=== PATIENT | male | born 1975 | race Caucasian/White ===

== ENCOUNTER → 2017-05-27 | Day surgery (SDC) | payer BC ==
[2017-05-13 14:43] VITALS: Ht 188 cm; Wt 85.5 kg
[~2017-05-27] VITALS: Ht 188 cm; Wt 85.5 kg
[~2017-05-27] MED LIST: ATROPINE SULFATE 0.1 MG/ML 5ML SYR IV PRN; CEFAZOLIN 2000 MG/60 ML D5W IV SCH; DEXAMETHASONE SOD INJ 4 MG/ML VIAL ONE; EpHEDrine SULFATE INJ 50 MG/ML AMP IV PRN; EpINEphrine INJ 1MG/ML AMP 1 MG/ML AMP ONE; FENTANYL CITRATE INJ 50 MCG/1 ML 2 ML VIAL IV PRN; FENTANYL CITRATE INJ 50 MCG/1 ML 2 ML VIAL ONE; HYDR-5688 PO; HYDROCODONE/ACETAMOPHEN 5/325MG TAB PO PRN; KETOROLAC TROMETHAMINE 30 MG/ML VIAL ONE; LIDOCAINE HCL 2% 2 ML VIAL (20MG/ML) ONE; MIDAZOLAM HCL 1 MG/ML 2ML VIAL ONE; ONDANSETRON INJ 2 MG/ML 2 ML VIAL IV PRN; ONDANSETRON INJ 2 MG/ML 2 ML VIAL ONE; PROPOFOL IV EMULSION 10 MG/ML 20 ML VIAL IV ONE; ROPIVACAINE 0.5% 5 MG/ML 30 ML VIAL ONE; SODIUM CHLORIDE 0.9% 1000ML 1,000 ML IV SCH
--- NOTE | 2017-05-27 06:52 | History & Physical Bridge - [place] ---
H&P Re-Evaluation Bridge Note: I have examined the patient, reviewed the History & Physical and in the interval since the performance of the History & Physical I have noted the following changes of clinical significance: No changes noted
[2017-05-27] MEDS: LACTATED RINGER'S 1000ML 1,000 ML IV SCH ×2 (07:46→10:15)
--- NOTE | 2017-05-27 09:19 | Discharge Instructions-SurgCtr ---
Discharge Instructions Date of Service May 27, 2017. Visit Reason for Visit: Acute Meniscal Tear, Medial Discharge Discharge Diagnosis / Problem: SAME ABOVE Discharge Goals Goal(s): Decrease discomfort, Improve function Activity Recommendations Activity Limitations: as noted below Lifting Limitations: gradually increase as tolerated Exercise/Sports Limitations: gradually increase as tolerated Driving or Machine Use: resume 1 day after discharge Weightbearing Status: Left weightbearing (as tolerated) Anesthesia . Post Anesthesia Instructions: If you have had General Anesthesia or IV Sedation: * Do not drive today. * Resume driving when surgeon permits. * Do not make important decisions or sign legal documents today. * Call surgeon for: 1. Temperature elevations greater than 101 degrees F. 2. Uncontrollable pain. 3. Excessive bleeding. 4. Persistent nausea and vomiting. 5. Medication intolerance (nausea, vomiting or rash). * For nausea and vomiting use only clear liquids such as: tea, soda, bouillon until nausea subsides, then gradually increase diet as tolerated. * If you have any concerns or questions, call your surgeon's office. If physician is unavailable and it is an emergency, call 911 or go to the nearest emergency room. . Instructions / Follow-Up Instructions / Follow-Up MEDICATIONS: * Resume previous medications unless instructed otherwise by your surgeon. * Always take pain medication on a full stomach or with food to avoid upset stomach. * Do not drink alcohol or drive while taking narcotics. * Ibuprofen or Tylenol may be taken if narcotic not needed. SPECIAL CARE INSTRUCTIONS: __ None _X_ Keep extremity elevated and iced x 48 hours; apply ice 20-30 minutes 8-10 times/day. May remove at night. _X_ Crutches _X_ May discard when able __ Brace/Post-op shoe __ 24 hrs/day __ Remove at night _X_ Dressing __ Maintain until seen in office, may shower with plastic over site _X_ Remove dressings in 24-48 hours and then may shower _X_ Cover incisions with band-aids after showering __ Do not remove steri-strips Call physician if chills or temperature rises above 102 degrees or pain unrelieved by prescribed pain medications. Office [phone] Diet Recommendations Home Diet: no limitations Fluid Restriction: None Procedures Procedures Performed: Left Knee Arthroscopy, Partial Lateral Meniscectomy, Chondroplasty, Limited Synovectomy Pending Studies Studies pending at discharge: no Work Instructions Return To Work: after follow-up Medical Emergencies . Who to Call and When: Medical Emergencies: If at any time you feel your situation is an emergency, please call 911 immediately. . Non-Emergent Contact Non-Emergency issues call your: Primary Care Provider Call Non-Emergent contact if: you have a fever, temperature is above 101.5 . . "Provider Documentation" section prepared by Yordy Randolph. .
--- NOTE | 2017-05-27 09:31 | [facility] Post Operative Brief Note ---
Immediate Operative Summary Operative Date May 27, 2017. Pre-Operative Diagnosis Left Knee Medial Meniscal Tear Post-Operative Diagnosis Same Procedure(s) Performed Left Knee Arthroscopy, Partial Lateral Meniscectomy, Chondroplasty, Limited Synovectomy Surgeon Dr. Tello [employer] Surgeon(s) Chantale Randolph PA-C Estimated Blood Loss 5ml Findings as above Specimens 0 Complication(s) None Disposition Recovery Room / PACU
[2017-05-27 10:13] VITALS: TEMP 36.4
--- NOTE | 2017-05-27 10:31 | Anesthesia Progress Nt - [facility] ---
Anesthesia Post Op Note Date & Time May 27, 2017 at 10:31 Vital Signs Pain Intensity: 4 Vital Signs Past 12 Hours Date Time Temp Pulse Resp B/P (MAP) Pulse Ox O2 Delivery O2 Flow Rate FiO2 05/27/17 10:13 36.4 59 18 124/77 (93) 100 Room Air 05/27/17 09:50 36.4 65 21 05/27/17 09:50 65 21 100 05/27/17 09:46 128/77 05/27/17 09:45 70 22 05/27/17 09:45 72 22 96 05/27/17 09:41 119/80 05/27/17 09:40 72 21 05/27/17 09:40 71 21 100 05/27/17 09:37 132/77 05/27/17 09:35 75 31 97 05/27/17 09:35 76 31 05/27/17 09:32 112/94 05/27/17 09:30 87 22 99 05/27/17 09:30 88 22 05/27/17 09:27 138/79 05/27/17 09:25 95 17 05/27/17 09:25 94 17 99 05/27/17 09:21 36.1 58 12 110/ 100 Mask 6 05/27/17 09:21 129/83 05/27/17 09:20 55 7 99 05/27/17 09:20 55 7 05/27/17 07:26 36.3 66 16 125/87 (100) 99 Room Air Notes Mental Status: alert / awake / arousable, participated in evaluation Pt Amnestic to Procedure: Yes Nausea / Vomiting: adequately controlled Pain: adequately controlled Airway Patency, RR, SpO2: stable & adequate BP & HR: stable & adequate Hydration State: stable & adequate Anesthetic Complications: no major complications apparent
[2017-05-27 11:48] VITALS: BP 128/77; PULSE 65; O2SAT 99
== END | disposition home or self-care (01) ==
LOC: X.SURG 07:15
PROVIDERS: ATTEND Orthopaedic Surgery
DX: M23.262 Derangement of other lateral meniscus due to old tear or injury, left knee (principal); M94.262 Chondromalacia, left knee

== ENCOUNTER → 2017-12-17 | Outpatient (CLI) | payer BC ==
--- NOTE | 2017-12-17 12:32 | DIAGNOSTIC IMAGING REPORT ---
NECK/SKULL BASE ULTRASONOGRAPHY CLINICAL HISTORY: R220 palpable abnormality at the base of the skull COMPARISON STUDY: No previous studies for comparison. FINDINGS: Ultrasonographic evaluation of the upper posterior neck/posterior skull was performed. No soft tissue masses were visualized ultrasonographically. Bone cannot be evaluated on ultrasound. If a clinically suspicious mass is palpated, additional imaging such as an MRI or CT scan could be obtained in follow-up. IMPRESSION: No soft tissue masses were visualized at the area of palpable abnormality. Ultrasound cannot be utilized to evaluate bony lesions. Electronically signed by: Loc Sharif M.D. 12/17/2017 12:31 PM Dictated Date/Time: 12/17/2017 12:28 PM
== END | disposition home or self-care (01) ==
LOC: C.ULTR 12:06
PROVIDERS: ATTEND Family Medicine
DX: R22.0 Localized swelling, mass and lump, head (principal)